=== PATIENT | male | born 1965 | race Caucasian/White ===

== ENCOUNTER 2016-11-06 11:36 | Emergency (ER) | payer OTHER ==
[~2016-11-06] VITALS: Ht 185.4 cm; Wt 77.3 kg
[2016-11-06 11:39] VITALS: BP 116/71; PULSE 60; RESP 20; O2SAT 99
--- NOTE | 2016-11-06 13:54 | ED.REPORT ---
HPI-Extremity Problem Lower Date of Service Nov 06, 2016 ED Provider: Ann Harp History of Present Illness: right knee issues, old football injury from high school. 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 primary care is no one. no new injury. has not been taking anything for the pain. has to move carefully to avoid problems with knee Nursing Notes Stated Complaint: RIGHT KNEE PAIN Chief Complaint: Extremity Trauma Nursing Notes Reviewed: Yes Allergies: Coded Allergies: No Known Allergies (Unverified , 11/06/16) General Time Seen by MD: 13:53 Chief Complaint Knee injury right Hx Obtained From: Patient Onset Occurred: More than a week ago... (>6 months) Symptom Duration: Since onset Past Medical History Past Medical History Denies: Asthma, Diabetes mellitus Past Surgical History right knee in 84, acl repair Smoking History Current Every Day Smoker (1/2 pack a day for 30 years) Social History Alcohol Use: Denies alcohol use (for 15 years) Drug Use: Denies drug use Occupation single no work or school 11/06/2016 Ambulatory Status Independent Review of Systems Basic Review of Systems Eyes: Vision NL, No discharge : No dysuria, No frequency Psychiatric: Normal thought content Physical Exam Initial Vital Signs Vital Signs (First) Date Time Temp Pulse Resp B/P Pulse Ox O2 Delivery O2 Flow Rate FiO2 11/06/16 11:39 36.6 60 20 116/71 99 Room Air Initial VS: Reviewed, Vital signs normal General/Constitutional: Well-developed, Well-nourished Head / Eyes: Atraumatic, Normocephalic, PERRL ENT: Mucous membranes moist, Conjunctiva normal, No scleral icterus Neck: Supple, Non-tender, Full range of motion Respiratory: Breath sounds normal, Clear to auscultation, No respiratory distress Cardiovascular: Regular rate & rhythm, Heart sounds normal, Intact distal pulses Abdomen / GI: Soft, Non-tender, No guarding, No rebound, No distention Back: No CVA tenderness Lymphatic: No lymphadenopathy Upper Extremities: Vascular intact, Neuro intact, No swelling, No tenderness Skin: Warm, Dry, No cyanosis Neurologic: Alert, Oriented, Nonfocal Psychiatric: Mood/affect normal, Behavior normal, Normal thought content Lower Extremity / Pelvis / MS: Atraumatic, Inspection NL, Full range of motion right knee with no swelling present, no erthyma. able to fully extend it limited flexion to 90 degrees. no crepitus noted, no leg swelling, full range of motion of ankle and foot. sensation intact distally, cap refill less than 3 sec General/Constitutional: Awake, Alert, No acute distress, Well appearing, Well developed, Well hydrated, Well nourished, Cooperative, Not toxic appearing Respiratory / Chest: Atraumatic, Breath sounds NL, Breath sounds = bilat, No respiratory distress Cardiovascular: Heart rate NL, Regular rhythm, Heart sounds NL, No gallop Re-Eval/Medical Decision Med Decision/Clinical Course 51 year old male presents for evualation of chronic right knee pain of years duration. No acute findings. No x-ray indicated as no recent injury. Exam does not indicate any sign of cellulitis, compartment syndrome or patellar tendon rupture. Education provided on where to go for appropriate care Discharge & Departure Impression: Primary Impression: Knee pain, chronic Laterality: right Qualified Code: M25.561 - Pain in right knee Disposition: Home Additional Instructions: The exam at this time does not show any obvious swelling. You are being given at toradol injection in the ER. Continue with ketorolac pills. It would be helpful for you to establish in primary care, consider the residency clinic. You are also being referred to ortho. Call Dr. Concepcion for follow up. Continue with movement as much as possible. Referrals: Brendan Concepcion DO [facility] EDSupervising Provider for APC: Kris Edwards MD copies to: Brendan Concepcion DO; [facility] Ann Harp Nov 06, 2016 13:54
[2016-11-06] MEDS ORDERED: Ketorolac 30 mg/mL 2 mL Inj IM ONE (14:05)
[2016-11-06 14:28] VITALS: BP 118/64; PULSE 62; RESP 20; O2SAT 99
== END 2016-11-06 14:29 | disposition home or self-care (01) ==
LOC: SED 11:36
DX: M25.561 Pain in right knee (principal); G89.29 Other chronic pain; F17.200 Nicotine dependence, unspecified, uncomplicated; Z87.828 Personal history of other (healed) physical injury and trauma; Z98.890 Other specified postprocedural states
CPT/HCPCS: 96372; 99283; J1885